=== PATIENT | female | born 1965 | race Caucasian/White ===

== ENCOUNTER 2023-12-21 23:26 | Emergency (ER) | payer OTHER, SELFPAY ==
[2023-12-21 23:29] VITALS: BP 169/92
[2023-12-22] MEDS: TORADOL 15 MG IV (00:02)
[2023-12-22] MEDS: NSS 1000 IV (00:03)
[2023-12-22] MEDS: ZOFRAN 4 MG IV (00:06)
[2023-12-22 00:08] VITALS: BMI 30.9
[2023-12-22 00:10] LABS: % Basophils 0.1 % (0-2); % Eosinophils 0.9 % (0-6); % Immature Granulocytes 0.3 % (0-0.5); % Lymphocytes 31.5 % (20.5-51.1); % Neutrophils 60.2 % (42.2-75.2); Absolute Eosinophils 0.1 10^3/uL (0-0.7); Absolute Lymphocytes 2.4 10^3/uL (1.2-3.4); Absolute Monocytes 0.5 10^3/uL (0.1-0.6); Absolute Neutrophils 4.6 10^3/uL (1.4-6.5); Hematocrit 35.3 % (37.0-47.0); Hemoglobin 12.6 g/dL (12.0-16.0); Mean Corp Hgb Conc. 35.7 g/dL (33.0-37.0); Mean Corpuscular Hgb 29.5 pg (27.0-31.0); Mean Corpuscular Volume 82.7 fL (81.0-99.0); Mean Platelet Volume 9.7 fL (7.4-10.4); Nucleated Red Blood Cells % 0 %; Platelet Count 250 10^3/uL (130-400); Red Blood Cell Count 4.27 10^6/uL (4.20-5.40); Red Cell Dist. Width 13.7 % (11.5-14.5); White Blood Cell Count 7.7 10^3/uL (4.8-10.8)
[2023-12-22 00:30] LABS: ALT (SGPT) 19 U/L (0-35); AST (SGOT) 22 U/L (14-36); Albumin 4.2 g/dl (3.5-5.0); Alkaline Phosphatase 90 U/L (38-126); Blood Urea Nitrogen 19 mg/dl (7-17); Calcium 9.5 mg/dl (8.4-10.2); Carbon Dioxide 25 mmol/L (22-30); Chloride 104 mmol/L (98-107); Estimated Creatinine Clearance 103 ml/min; Glucose 159 mg/dl (70-99); Lipase 23 U/L (23-300); Potassium 3.5 mmol/L (3.5-5.1); Sodium 138 mmol/L (135-145); Total Bilirubin 0.6 mg/dl (0.2-1.3); eGFR > 60.00
--- NOTE | 2023-12-22 00:38 | ED.GENMED ---
History of Present Illness
General
Chief Complaint: Abdominal Pain
Time Seen by Provider: 12/21/23 23:35
Travel History
Have you had any contact with someone who has COVID-19?: No
Do you have any symptoms of coronavirus? Fever > 100 degrees, chills, cough, shortness of breath, sore throat, loss of taste or smell, muscle aches, or headache?: No
History of Present Illness
History of Present Illness:
58-year-old female presents for evaluation of left lower quadrant abdominal pain that began yesterday and worsened today. She associated vomiting, and diarrhea. Feels comparable to past kidney stones. Denies any fevers or chills
Past History
Past History
ED Past Medical History: Other (Kidney stones) and Other (svt)
Social History
Tobacco: Non-smoker
Personal:
Living: with family
Employment: Employed
Review of Systems
Review of Systems
Allergies reviewed?: Yes
All Other Systems: ROS reviewed and negative except as documented in HPI and ROS
Phy Exam
Physical Exam
Physical Exam:
GEN: Well appearing, NAD, WDWN
HEENT: Oral mucosa moist, no scleral icterus
Cardiac: Regular rate
Lung: No respiratory distress, no tachypnea
Abdomen: LLQ tenderness, no rigidity
MSK: No gross deformity or injuries
Skin: Good color, no pallor or jaundice, no rashes
Neuro: AO x3, moves all extremities freely
Psych: Calm, cooperative
Course
Orders/Labs/Results
Orders:
Orders
12/21/23 23:43
Complete Blood Count/With Diff Urgent
Comprehensive Metabolic Panel Urgent
Lipase Urgent
0.9% Sodium Chloride 1000 ml [Nss] 1,000 ml IV BOLUS
Ketorolac [Toradol] 15 mg IV NOW STA
12/21/23 23:44
Urinalysis Reflex To Culture Urgent
Date Specimen was Collected: 12/21/23
Time Specimen was Collected: 23:46
12/22/23 00:00
CT Abd/Pel (IV only)-DH only Urgent
Reason For Exam: LLQ pain
12/22/23 00:02
Urine Microscopic Reflex Cult Urgent
Urine Culture Urgent
FRANCOIS Source: U
Specimen Description:
Date Specimen was Collected: 12/21/23
Time Specimen was Collected: 23:46
12/22/23 00:05
Ondansetron Injectable [Zofran] 4 mg .ROUTE .STK-MED ONE
12/22/23 00:06
Ondansetron Injectable [Zofran] 4 mg IV NOW STA
Abnormal Lab Results
12/22/23
00:02
Hct 35.3 L %
(37.0-47.0)
BUN 19 H mg/dl
(7-17)
Glucose 159 H mg/dl
(70-99)
Ur Occult Blood Reflex 2+ A
(Negative)
Leukocyte Esterase Rfl 1+ A
(Negative)
Urine RBC 26-30 A /HPF
(0-2)
Urine Glucose 1+ A
(Negative)
12/22/23 00:02
12/22/23 00:02
Vital Signs
Initial and Last Documented VS:
Initial Vital Signs
Temp Pulse Resp BP Pulse Ox
98.1 F 73 22 169/92 100
12/21/23 23:29 12/21/23 23:29 12/21/23 23:29 12/21/23 23:29 12/21/23 23:29
Last Documented Vital Signs
Temp Pulse Resp BP Pulse Ox
98.1 F 73 22 169/92 100
12/21/23 23:29 12/21/23 23:29 12/21/23 23:29 12/21/23 23:29 12/21/23 23:29
MDM/Problems Addressed
MDM/Problems Addressed:
Small distal UVJ stone noted on CT scan. Patient is clinically well with no signs of UTI. She cannot take NSAIDs due to Crohn's disease/GI intolerance thus will prescribe opiates for pain and try a course of Flomax
*Critical Care Note
Total Time (30-74mins, 75-104mins- exclusive of procedures): Not Applicable
ED Attending Note
-
Portions of this chart may have been created with voice recognition software.� Occasional wrong word or��sound alike� substitutions may have occurred due to the inherent limitations of voice recognition software.
Discharge Plan
Departure
Patient Disposition: Home (Routine Discharge)
Date of Disposition: 12/22/23
Time of Disposition: 01:47
Patient with high blood pressure during this ER visit?: No
Discharge Problem:
Ureterolithiasis
Instructions: Kidney Stones (DC)
Prescriptions:
New
oxycodone 5 mg tablet
5 mg PO Q8H PRN (Reason: Pain) Qty: 10 0RF
ondansetron 4 mg tablet,disintegrating
4 mg PO TIDPRN PRN (Reason: nausea/vomiting) Qty: 10 0RF
tamsulosin [Flomax] 0.4 mg capsule
0.4 mg PO HS Qty: 7 0RF
No Action
atorvastatin 10 MG tablet
10 mg PO QPM
prednisone 20 MG tablet
20 mg PO DAILY
methotrexate sodium 2.5 MG tablet
7.5 mg PO WEEKLY
Patient Comments:
takes on saturday
lansoprazole [Prevacid] 30 MG capsule,delayed release(DR/EC)
30 mg PO DAILY AT 0700
folic acid 1 MG tablet
10 mg PO DAILY
Patient Comments:
pt thinks it 10 mg
hydrocodone-acetaminophen [[place]] 1 EACH tablet
1 ea PO Q4HPRN PRN (Reason: severe pain) Qty: 10 0RF
Referrals:
Carl Sexton MD [Family Provider] -
Interventions
Interventions:
*Risk Screen - Suicide Last Done: 12/22/23 00:08
*General Assessment Last Done: 12/22/23 00:08
*Neglect/Abuse Screening Last Done: 12/22/23 00:08
ED- Fall Risk Assessment Last Done: 12/22/23 00:40
EA-Dlsasl-Cslzyxgaiw Assessment Last Done: 12/22/23 00:08
Discharge Date and Time
Print Language: ICELANDIC
[2023-12-22 00:42] LABS: Urine Albumin Negative (Neg - Trace); Urine Bilirubin Negative (Negative); Urine Character Clear (Clear); Urine Color Yellow; Urine Glucose 1+ (Negative); Urine Ketone Negative (Negative); Urine Leukocyte 1+ (Negative); Urine Nitrite Negative (Negative); Urine Occult Blood 2+ (Negative); Urine Specific Gravity 1.015 (<1.030); Urine Urobilinogen Negative (Neg - 1+); Urine pH 6.5 (5.0-9.0)
[2023-12-22 00:56] LABS: Urine Red Blood Cell 26-30 /HPF (0-2)
== END 2023-12-22 02:18 | disposition home or self-care (01) ==
LOC: EMR 23:26
PROVIDERS: Physician Assistant; EMERGENCY PHYSICIAN Student in an Organized Health Care Education/Training Program; FAMILY PHYSICIAN Internal Medicine
DX: N20.2 Calculus of kidney with calculus of ureter (principal); K50.90 Crohn's disease, unspecified, without complications; I47.10 Supraventricular tachycardia, unspecified; Z87.442 Personal history of urinary calculi
CPT/HCPCS: 99285; 96374; 96375; 74177; 80053; 81003; 81015; 83690; 85025; 87086; Q9967